=== PATIENT | male | born 1990 | race Caucasian/White ===

== ENCOUNTER 2017-10-02 20:44 | Inpatient (IN) | payer BC, OTHER ==
[~2017-10-02] VITALS: Ht 185.4 cm; Wt 70.3 kg
--- NOTE | 2017-10-02 21:15 | NUR ---
Pre-Admission Patient was seen in intake office. Patient is noted to moderately intoxicated but stable at this time to continue with admission assessment. V/S noted as: 148/83, 96, 18, 98.0, 99%, 0/10. Policies on medication disposal explained and patient is able to verbalize understanding. Will continue with admission process to unit.
[2017-10-02 21:30] VITALS: BP 148/83
[2017-10-02] MEDS ORDERED: LOPERAMIDE HCL 2 MG CAPSULE PO PRN ×2 (21:30)
[2017-10-02] MEDS ORDERED: ACETAMINOPHEN 325 MG TABLET PO PRN (21:30)
[2017-10-02] MEDS ORDERED: MIRALAX 17 GM POWD.PACK PO PRN (21:30)
[2017-10-02] MEDS ORDERED: IBUPROFEN 600 MG TABLET PO PRN (21:30)
[2017-10-02] MEDS ORDERED: DICYCLOMINE HCL 20 MG TABLET PO PRN (21:30)
[2017-10-02] MEDS ORDERED: BUPRENORPHINE HCL 2 MG TAB.SUBL SL PRN (21:30)
[2017-10-02] MEDS ORDERED: ONDANSETRON ODT 4 MG TAB.RAPDIS SL PRN (21:30)
[2017-10-02] MEDS ORDERED: ONDANSETRON 4 MG/2 ML VIAL IM PRN (21:30)
[2017-10-02] MEDS ORDERED: METHOCARBAMOL 750 MG TABLET PO PRN (21:30)
[2017-10-02] MEDS ORDERED: MAG HYDROX/AL HYDROX/SIMETH 30 ML LIQUID UDC PO PRN (21:30)
[2017-10-02] MEDS ORDERED: CLONIDINE HCL 0.1 MG TABLET PO PRN (21:30)
[2017-10-02] MEDS ORDERED: MAGNESIUM HYDROXIDE 30 ML LIQUID UDC PO PRN (21:30)
[2017-10-02 22:00] VITALS: BP 144/86
[2017-10-02 22:03] LABS: BASOPHILS # (AUTO) 0.1 K/uL (0.0-8.0); BASOPHILS % (AUTO) 1.3 % (0.0-2.0); EOSINOPHILS % (AUTO) 0.7 % (0.0-7.0); HEMATOCRIT 42.8 % (40-50); HEMOGLOBIN 14.1 G/DL (14.0-18.0); LYMPHOCYTES # (AUTO) 1.4 K/UL (0.8-4.8); LYMPHOCYTES % (AUTO) 26.2 % (20.5-51.5); MEAN CORPUSCULAR HEMOGLOBIN 27.5 UUG (27.0-31.0); MEAN CORPUSCULAR HGB CONC 33 g/dL (32.0-37.0); MEAN CORPUSCULAR VOLUME 83.6 FL (82.0-92.0); MONOCYTES # (AUTO) 0.9 K/UL (0.1-1.30); MONOCYTES % (AUTO) 17.3 % (0.0-11.0); NEUTROPHILS # (AUTO) 2.8 K/UL (1.8-8.9); NEUTROPHILS % (AUTO) 54.5 % (38.5-71.5); PLATELET COUNT (AUTO) 183 K/UL (150-450); RED BLOOD CELL COUNT(AUTO) 5.12 MIL/UL (4.7-6.1); WHITE BLOOD COUNT (AUTO) 5.2 K/UL (4.0-11.2)
[2017-10-02 22:16] LABS: ALANINE AMINOTRANSFERASE 49 U/L (16-63); ALKALINE PHOSPHATASE 63 U/L (50-136); ASPARTATE AMINOTRANSFERASE 46 U/L (15-37); BILIRUBIN,TOTAL 0.5 mg/dL (0.2-1.0); CARBON DIOXIDE 31 mmol/L (21-32); CHLORIDE 103 mmol/L (98-107); CREATININE 1.1 mg/dL (0.6-1.3); GLUCOSE 92 mg/dL (74-106); POTASSIUM 3.4 mmol/L (3.5-5.1); TOTAL PROTEIN, SERUM 7.5 g/dL (6.4-8.2); UREA NITROGEN, BLOOD 15 mg/dL (7-18)
[2017-10-02 22:18] LABS: ETHANOL < 3 MG/DL (0-0)
--- NOTE | 2017-10-02 22:30 | NUR ---
Admission Patient is a 27 year old male from [facility], admitted to [facility] to receive treatment for his Opioid Dependence. Patient was escorted on to unit by male TABLE MAKER where body check was rendered. Skin check rendered and noted with dry scab to the left lateral neck and left lateral torso. Patient verbalized "its from picking while on meth." Educated and encouraged patient to refrain from picking and to keep area clean and dry. Patient is able to provide Urine drug screen upon arrival to unit. Patient verbalizes allergies to PCN, wishes to be full coded, following a regular diet. Height noted as 6'1 and weight noted as 155lbs. Patient is ambulatory with no assistance needed. Patient is visibly anxious and restless. Breathing is even and non labored with no signs of SOB. No pain or discomfort verbalized. BUE and BLE noted to be WNL with no edema noted. Lung sounds clear with no cough noted. Bowel sounds are active in all 4 quadrants with LBM noted 10/01/17. Patient verbalizes past medical history as anxiety, history of seizure due to benzo withdrawal. Patient currently taking Lamictal 200mg for anxiety. Patient denies any suicidal ideations. He describes his usage as: 1. Heroin, started in 2012 but recently relapsed 2 weeks ago, using 0.5GM IV daily with the last use prior to admission using 0.3GM 2. Methamphetamines, recently started using for the past week, using 1GM via IV with last dose prior to admission using 0.5GM Patient describes his use as "really bad anxiety, restlessness, headaches, light sensitivity, hot and cold sweats, insomnia." Patient currently lives in [place] alone and works in Real Estate. Admission COWS noted to be 4. All information relayed to Dr. Olivarez. Labs to be rendered. PRN medications available for increased signs and symptoms. Will continue plan of acre as ordered.
[2017-10-02 22:45] LABS: LYMPHOCYTES % (MANUAL) 38 % (20-40); NEUTROPHILS % (MANUAL) 52 % (42-75)
[2017-10-02] MEDS ORDERED: LORAZEPAM 1 MG TABLET PO ONE (22:45)
[2017-10-02 22:46] LABS: MONOCYTES % (MANUAL) 10 % (2-10)
[2017-10-02 23:29] LABS: *AMPHETAMINE, URINE POSITIVE (NEGATIVE); *BARBITURATE, URINE NEGATIVE (NEGATIVE); *CANNABINOID, URINE NEGATIVE (NEGATIVE); *COCCAINE, URINE NEGATIVE (NEGATIVE); *OPIATE, URINE POSITIVE (NEGATIVE); *PHENCYCLIDINE SCREEN,URINE NEGATIVE (NEGATIVE)
[2017-10-02] MEDS ORDERED: POTASSIUM CHLORIDE 20 MEQ TAB.PRT.SR PO ONE (23:30)
--- NOTE | 2017-10-02 23:30 | NUR ---
Labs/MD Communication Labs resulted with Potassium of 3.4. Relayed to MD with orders to give Potassium 40meq x1 dose now. Orders noted and carried out. Will administer medications accordingly.
[2017-10-02] MEDS ORDERED: LORAZEPAM 1 MG TABLET ONE (23:50)
[2017-10-02] MEDS ORDERED: POTASSIUM CHLORIDE 20 MEQ TAB.PRT.SR ONE (23:51)
[2017-10-03] VITALS: BP 145/94
[2017-10-03] MEDS ORDERED: LAMO200T2 PO (02:17)
[2017-10-03 04:18] VITALS: BP 152/97
[2017-10-03] MEDS: LORAZEPAM 1 MG TABLET PO PRN ×2 (04:24→21:03)
[2017-10-03] MEDS ORDERED: LORAZEPAM 1 MG TABLET ONE (04:38)
--- NOTE | 2017-10-03 04:40 | NUR ---
PRN Medication Administration Patient is verbalizing increased anxiety and agitation. PRN Ativan 2mg administered as per order. Will continue to monitor.
--- NOTE | 2017-10-03 05:40 | NUR ---
PRN Medication Reassessment Patient is noted in bed sleeping. Breathing even and non labored. No signs of pain or discomfort noted. patient was given PRN Ativan 2mgn for increased anxiety and agitation. Patient noted to continue sleeping with no interruptions noted. will continue to monitor.
--- NOTE | 2017-10-03 06:59 | NUR ---
End of Shift Patient is in bed sleeping. Breathing even and non labored. Patient is a 27 year old male admitted on 10/02/17 for Opiate Dependence under the care of Dr. Olivarez. Patient set to start on on a 4 day Subutex taper. Patient verbalizes allergies to PCN, wishes to be full code, following a regular diet, placed on fall and seizure precautions. Skin noted lateral left neck scab and left lateral torso scab from previous self picking. Patients past medical history noted as anxiety, ADHD, and history of seizures. Patient takes Lamictal 200mg with medication reconciled. Patient received PRN Ativan 2mg for increased anxiety and agitation. Patient also supplemented for lab result of potassium of 3.4. last noted COWS 4. All needs attended to promptly. Will endorse to continue plan of care as ordered.
--- NOTE | 2017-10-03 07:00 | NUR ---
Start of Shift Notes: Received patient in his room. Asleep but easily arousable. Verbally responsive. Oriented x 4. Respirations even and unlabored. No SOB noted. Skin warm and dry to touch. Abdomen soft and non-distended. BS (+) in all 4 quadrants. No complains of N/V/D or constipation noted. Bladder non-distended. Voids independently. Ambulatory ad susana with steady gait. Patient is a 27 year old male admitted for opiate and meth dependence who is currently on a 4-day Subutex taper as ordered. No adverse reactions noted. Prior to admission, patient was using 0.5 to 1 gram of Heroin, and 1 grm of methamphetamine 3x in 1 week. Has past medical hx of anxiety and seizures. Allergic to PCN. FULL CODE. Regular diet. On fall and seizure precautions. Educated patient on his current plan of care for the day and his medication regimen. Encouraged oral fluid intake and encouraged group participation to learn new skills to prevent relapse. Will continue to monitor.
[2017-10-03 08:00] VITALS: BP 126/82
[2017-10-03] MEDS ORDERED: TUBERCULIN,PURIF.PROT.DERIV. 5 TU/0.1 ML TEST ID ONE (09:00)
[2017-10-03] MEDS: BUPRENORPHINE HCL 2 MG TAB.SUBL SL SCH ×3 (09:06→21:02)
[2017-10-03 12:00] VITALS: BP 125/73
--- NOTE | 2017-10-03 12:00 | NUR ---
COWS deferred: Patient noted to be laying in bed with eyes closed. Breathing even and unlabored. Easily arousable. RR 16. COWS deferred at this time. Addendum: 10/03/17 at 1326 by ANNA SYED LVN Amended: Links added.
[2017-10-03] MEDS ORDERED: NICOTINE POLACRILEX 4 MG GUM-PK OF TEN BC PRN (12:45)
[2017-10-03] MEDS: GABAPENTIN 400 MG CAPSULE PO SCH ×2 (15:10→21:03)
[2017-10-03 16:00] VITALS: BP 137/83
--- NOTE | 2017-10-03 19:01 | NUR ---
End of Shift Notes: Patient continues to be on 4-day Subutex taper as ordered. No adverse reactions noted. Patient is tolerating taper well. VS monitored closely. No significant abnormalities noted. Withdrawal symptoms were closely monitored. Initial COWS 9, patient presented with chills, hot flashes, restlessness, pupil dilation, anxiety and myalgia. Last COWS 5. Per patient Subutex has been effective in reducing his withdrawal symptoms. Patient stayed in the room and slept for most of the shift. Encouraged to participate in group and activities. All needs met and attended. Will continue to monitor closely.
--- NOTE | 2017-10-03 19:20 | NUR ---
Start of Shift Patient Received. Patient is in activities room participating in group activities. Patient is a 27 year old male admitted on 10/02/17 for Opiate Dependence under the care of Dr. Olivarez. Patient was started on a 4 day Subutex taper. Patient verbalizes allergies to PCN, Full Code, Regular Diet, placed on fall and seizure precautions. Skin noted lateral left neck scab and left lateral torso scab from previous self picking. Patients past medical history noted as anxiety, ADHD, and history of seizures. Patient was continued on home medication of Lamictal 200mg QHS. Per endorsement, PPD was administered to Right forearm. Last noted CIWA 5. All needs attended to promptly. Will continue plan of care as ordered.
[2017-10-03 20:30] VITALS: BP 133/84
[2017-10-03] MEDS: LAMOTRIGINE 200 MG TABLET PO SCH (21:03)
--- NOTE | 2017-10-03 21:05 | NUR ---
PRN Medication Administration Patient is noted verbalizing increased anxiety, noted to be restless, and verbalizing increased agitation. PRN Ativan 2mg administered as per order. Will continue to monitor.
--- NOTE | 2017-10-03 22:00 | NUR ---
PRN Medication Reassessment Patient noted in bed awake and watching TV. Patient is able to verbalize "the medication really helped me relax and calm down." PRN Ativan noted to be effective. Will continue to monitor.
[2017-10-04 00:25] VITALS: BP 126/88
[2017-10-04 04:28] VITALS: BP 123/86
[2017-10-04 05:06] LABS: HEPATITIS B SURFACE AG Negative (Negative)
--- NOTE | 2017-10-04 07:12 | NUR ---
End of Shift Patient is in bed sleeping. Breathing even and non labored. No signs of pain or discomfort noted. Patient is a 27 year old male admitted on 10/02/17 for Opiate Dependence and is currently receiving a 4 day Subutex taper. Patient verbalizes allergies to PCN, Full Code, Regular Diet, placed on fall and seizure precautions. Skin noted lateral left neck scab and left lateral torso scab from previous self picking. Patients past medical history noted as anxiety, ADHD, and history of seizures. Patient was continued on home medication of Lamictal 200mg QHS. Patient received PRN Ativan 2mg for increased signs and symptoms of withdrawal with medication noted to be effective. Last noted COWS 9. All needs attended to promptly. Will endorse to continue plan of care as ordered.
[2017-10-04 08:00] VITALS: BP 131/67
[2017-10-04] MEDS ORDERED: BUPRENORPHINE HCL 2 MG TAB.SUBL SL SCH ×2 (09:00→15:00)
[2017-10-04] MEDS: GABAPENTIN 400 MG CAPSULE PO SCH ×3 (09:00→21:01)
--- NOTE | 2017-10-04 09:00 | NUR ---
Robaxin 750 mg PO given: Patient complained of 6/10 muscle aches related to opiate withdrawal. Heat packs applied with no help. Medicated patient with Robaxin 750 mg PO as ordered. Will monitor for effectiveness.
--- NOTE | 2017-10-04 10:00 | NUR ---
Re-assessment: Robaxin Per patient, PRN Robaxin was effective in reducing pain. PL 2.
[2017-10-04 12:00] VITALS: BP 125/71
[2017-10-04] MEDS: BUPRENORPHINE HCL 2 MG TAB.SUBL SL SCH ×2 (14:26→21:01)
[2017-10-04] MEDS ORDERED: CLONIDINE HCL 0.1 MG TABLET PO ONE (15:00)
[2017-10-04 16:00] VITALS: BP 120/75
[2017-10-04] MEDS: KETOROLAC TROMETHAMINE 30 MG INJ IM PRN (18:15)
--- NOTE | 2017-10-04 18:15 | NUR ---
Toradol 30 mg IM given: Patient noted with complain of 8/10 generalized muscle aches related to opiate withdrawal. Non-pharmacological interventions were ineffective. Medicated patient with Toradol 30 mg IM as ordered. Will monitor for effectiveness.
--- NOTE | 2017-10-04 18:45 | NUR ---
Re-assessment: Toradol Per patient, PRN Toradol was effective in reducing patient's pain. PL 4.
--- NOTE | 2017-10-04 19:05 | NUR ---
Start of Shift Patient Received. Patient is in his room, awake, alert and verbally responsive. Breathing even and non labored. Patient is a 27 year old male admitted on 10/02/17 for Opiate Dependence and is currently receiving a Modified Subutex taper. Allergies to PCN, Full Code, Regular Diet, placed on fall and seizure precautions. Skin noted lateral left neck scab and left lateral torso scab from previous self picking. Patients past medical history noted as anxiety, ADHD, and history of seizures. Per endorsement, Patient was given PRN Toradol and Robaxin with medication noted to be effective. Last noted COWS 4. All needs attended to promptly. Will continue plan of care as ordered.
--- NOTE | 2017-10-04 19:17 | NUR ---
End of Shift Notes: Patient continues to be on 4-day Subutex taper as ordered. No adverse reactions noted. Tolerating taper well. VS monitored clsoely. No significant abnormalities noted. Withdrawal symptoms were closely monitored. Initial COWS 7, patient presented with anxiety, chills, hot flashes, myalgia and restlessness. Medicated patient with Robaxin 750 mg PO as ordered with help after 1 hour. Toradol 30 mg IM given at 1815 for complain of 8/10 with help after 30 minutes. Last COWS 4. Encoruaged to attend group and activities. All needs met and attended. Will continue to monitor closely.
[2017-10-04 20:39] VITALS: BP_SYST 110; BP_DIAS 68; BP_DIAS 78
[2017-10-04] MEDS: HYDROXYZINE PAMOATE 25 MG CAPSULE PO PRN (21:00)
[2017-10-04] MEDS: diphenhydrAMINE 50 MG CAPSULE PO PRN (21:01)
[2017-10-04] MEDS: LAMOTRIGINE 200 MG TABLET PO SCH (21:01)
[2017-10-04] MEDS: CLONIDINE HCL 0.1 MG TABLET PO SCH (21:01)
--- NOTE | 2017-10-04 21:05 | NUR ---
PRN Medication Administration Patient is verbalizing increased anxiety and inability of falling asleep. PRN Vistaril and Benadryl administered as per order. Will continue to monitor.
--- NOTE | 2017-10-04 22:00 | NUR ---
PRN Medication Reassessment Patient noted in bed sleeping. Breathing even and non labored. Patient was given PRN Vistaril and Benadryl for increased anxiety and inability of falling asleep. PRN medications noted to be effective. Will continue to monitor.
[2017-10-05 00:39] VITALS: BP 119/73
[2017-10-05 04:23] VITALS: BP 113/79
--- NOTE | 2017-10-05 07:04 | NUR ---
End of Shift Patient is in his bed sleeping. Breathing even and non labored. Patient is a 27 year old male admitted on 10/02/17 for Opiate Dependence continues on a modified Subutex taper. Allergies to PCN, Full Code, Regular Diet, placed on fall and seizure precautions. Skin noted lateral left neck scab and left lateral torso scab from previous self picking. Patients past medical history noted as anxiety, ADHD, and history of seizures. Patient received PRN Vistaril and Benadryl with both medications noted to be effective. Last noted COWS 4. All needs attended to promptly. Will endorse to continue plan of care as ordered.
[2017-10-05 08:00] VITALS: BP 125/71
[2017-10-05] MEDS: GABAPENTIN 400 MG CAPSULE PO SCH ×3 (08:13→20:34)
[2017-10-05] MEDS: BACLOFEN 10 MG TABLET PO SCH ×2 (08:13→14:08)
[2017-10-05] MEDS: CLONIDINE HCL 0.1 MG TABLET PO SCH ×2 (08:13→20:34)
[2017-10-05] MEDS ORDERED: BUPRENORPHINE HCL 2 MG TAB.SUBL SL SCH ×2 (09:00)
[2017-10-05 12:00] VITALS: BP 99/66
[2017-10-05] MEDS: BUPRENORPHINE HCL 2 MG TAB.SUBL SL SCH ×2 (14:08→20:33)
[2017-10-05 16:00] VITALS: BP 118/73
[2017-10-05] MEDS: NEOMY/BACITRAC/POLYMI OINT 28.35 GM TUBE TOP SCH (16:34)
--- NOTE | 2017-10-05 16:34 | NUR ---
Vistaril 25 mg PO given: Patient verbalized anxiety due to discharge location. Provided with therapeutic communication. Medicated patient with Vistaril 25 mg PO as ordered. Will monitor for effectiveness.
[2017-10-05] MEDS ORDERED: NEOMY/BACITRAC/POLYMI OINT 28.35 GM TUBE TOP SCH (17:00)
--- NOTE | 2017-10-05 17:34 | NUR ---
Re-assessment: Vistaril Per patient, PRN Vistaril was effective in reducing anxiety.
[2017-10-05] MEDS: KETOROLAC TROMETHAMINE 30 MG INJ IM PRN (17:55)
--- NOTE | 2017-10-05 17:55 | NUR ---
Toradol 30 mg IM given: Patient noted with complain of 8/10 generalized pain related to opiate withdrawal. Non-pharmacological interventions provided but ineffective. Medicated patient with Toradol 30 mg IM as ordered. Will monitor for effectiveness.
--- NOTE | 2017-10-05 18:25 | NUR ---
Re-assessment: Toradol Per patient, PRN Toradol was effective in reducing pain. PL [address]
--- NOTE | 2017-10-05 19:02 | NUR ---
End of Shift Notes: Patient continues to be on 4-day Subutex taper as ordered. No adverse reactions noted. Tolerating taper well. VS monitored clsoely. No significant abnormalities noted. Withdrawal symptoms were closely monitored. Initial COWS 6, patient presented with anxiety, chills, hot flashes, myalgia and restlessness. Last COWS 3. Vistaril 25 mg PO given at 1634 for anxiety with help after 1 hour. Toradol 30 mg IM given at 1755 for 8/10 pain with help after 30 minutes. Per patient, Subutex has been effective in reducing his withdrawal symptoms. Encouraged to attend group and activities. Isolative at times and requires reassurance and redirection. All needs met and attended. Will continue to monitor closely.
--- NOTE | 2017-10-05 19:30 | NUR ---
START OF SHIFT Patient is a 27 year old male admitted on 10/02/17 for Opiate and Meth Dependency and is currently on 4 day Modified Subutex taper. Allergies to PCN, Full Code, Regular Diet, placed on fall and seizure precautions. Patient has PMH of anxiety and seizures due to withdrawals.Last COWS=5 per report.Per patient, Subutex has been effective in reducing his withdrawal symptoms. Pt received resting in bed in his room.Pt is A/A/O X 4. All needs met;all safety measures in place per hospital policy;call light within reach.Will continue to monitor closely.
[2017-10-05 20:00] VITALS: BP 123/81
[2017-10-05] MEDS: BACLOFEN 20 MG TABLET PO SCH (20:33)
[2017-10-05] MEDS: LAMOTRIGINE 200 MG TABLET PO SCH (20:34)
[2017-10-05] MEDS: diphenhydrAMINE 50 MG CAPSULE PO PRN (21:48)
[2017-10-05] MEDS: HYDROXYZINE PAMOATE 25 MG CAPSULE PO PRN (21:48)
--- NOTE | 2017-10-05 21:50 | NUR ---
PRN MEDS PRN VISTARIL AND BENADRYL GIVEN ORDERED FOR C/O ANXIETY AND INSOMNIA RESPECTIVELY.WILL MONITOR FOR EFFECTIVENESS.
--- NOTE | 2017-10-05 22:50 | NUR ---
PRN MEDS EFFECTIVE IN REDUCING ANXIETY.PT OBSERVED RESTING IN BED WITH EYES CLOSED.NO S/S OF DISTRESS NOTED.BREATHING IS EVEN AND UNLABORED.PT REQUESTED EARLIER, NOT TO BE WOKEN UP FOR V/S IF HE IS SLEEPING.WILL CONTINUE TO MONITOR.
--- NOTE | 2017-10-06 | NUR ---
V/S REFUSED/COWS DEFERRED PT REQUESTED NOT TO BE WOKEN UP FOR V/S IF HE IS SLEEPING.PT OBSERVED RESTING IN BED WITH EYES CLOSED,APPEARS TO BE FAST ASLEEP.COWS DEFERRED D/T SLEEP.WILL CONTINUE TO MONITOR.
[2017-10-06 04:00] VITALS: BP 129/81
--- NOTE | 2017-10-06 06:39 | NUR ---
END OF SHIFT Patient is a 27 year old male admitted on 10/02/17 for Opiate and Meth Dependency and is currently on 4 day Modified Subutex taper. Allergies to PCN, Full Code, Regular Diet, placed on fall and seizure precautions. Patient has PMH of anxiety and seizures due to withdrawals.Last COWS=2 at 0400 .PRN Vistaril and Benadryl were given and were effective,pt slept 7 hrs, fluid intake was 1698 mls,voided x 1,stool x 1.Pt is /A/O X 4. All needs met;all safety measures in place per hospital policy;call light within reach.Will continue to monitor closely.
--- NOTE | 2017-10-06 07:38 | NUR ---
BEGINNING OF SHIFT Patient endorsement report received from electronics installer nurse, all pertinent information discussed. Patient is a 27 year old male admitted on: 10/02/2017 with admitting Dx: Opiate Dependence, With substance use of: methamphetamine. Patient is currently with ongoing 4 day Subutex taper as ordered, continues under close observation,received PRN: Vistaril, and Benadryl as ordered. Patient with last cow score of: 2. Patient slept for 7 hours. Patient received awake, alert and oriented x4, educated patient regarding plan of care for the day and medication regimen with good verbal understanding. Safety measures in place. call light kept with in reach, Fall and seizure precautions in place. will continue to monitor closely.
[2017-10-06 08:06] VITALS: BP 126/67
[2017-10-06] MEDS: GABAPENTIN 400 MG CAPSULE PO SCH ×3 (08:30→20:53)
[2017-10-06] MEDS: BACLOFEN 20 MG TABLET PO SCH ×3 (08:30→20:53)
[2017-10-06] MEDS: CLONIDINE HCL 0.1 MG TABLET PO SCH ×2 (08:30→20:54)
[2017-10-06] MEDS: BUPRENORPHINE HCL 2 MG TAB.SUBL SL SCH ×3 (08:31→20:53)
[2017-10-06] MEDS: NEOMY/BACITRAC/POLYMI OINT 28.35 GM TUBE TOP SCH ×2 (08:32→17:05)
[2017-10-06] MEDS ORDERED: BUPRENORPHINE HCL 2 MG TAB.SUBL SL SCH (09:00)
[2017-10-06 13:41] VITALS: BP 112/65
[2017-10-06 17:00] VITALS: BP 116/60
--- NOTE | 2017-10-06 18:50 | NUR ---
END OF SHIFT Patient alert and oriented x4, patient compliant with therapeutic plan of care. Patient with admitting Dx: Opiate dependence, Patient continues on 4 day Subutex taper as ordered, currently on day 2 of taper. 0900 assessment patient presented with: mild bone and joint aches, yawning x1, irritable, and anxiety with cow score of: 4; 1300 assessment patient presented with: mild bone and joint aches, and anxiety with cow score of: 3; 1700 assessment patient presented with: heart rate of 94 and mild anxiety with cow score of:2. Detox medication effective at reducing withdrawal symptoms. Patient encouraged adequate PO fluid intake as tolerated, Encouraged to attend group therapies/sessions to learn new coping skills to prevent relapse, noted attending and participating. denies any SI/HI. Patient administered no PRNs during shift. Patients safety measures are in place. all needs met and rendered. Patient endorsement report given to shift supervisor melting nurse, all pertinent information discussed. Safety measurers in place. will continue to monitor.
--- NOTE | 2017-10-06 19:30 | NUR ---
START OF SHIFT Pt is a 27 y/o male admitted on 10/02/17 for opiate and meth dependence. Pt was dependent on heroin IV 0.5-1 gram daily and meth IV 1 gram x 3 weekly. Pt is full code, allergic to PCN, regular diet and on fall precautions. Pt reports PMH of anxiety and seizure r/t previous benzo withdrawal. Pt is on a 4 day Subutex taper that started 10/03/17, tolerating well. Upon assessment pt is laying in bed and came from group. Pt presents with anxiety, difficulty sleeping, intermittent tremors, muscle spasms, back pain 5/10, intermittent sweats, decreased appetite, anhedonia and dysphoria. Respirations 18, even and unlabored. Denies N/V/D. Denies chest pain or SOB. Safety measures in place. Call light within reach. Will continue to monitor.
[2017-10-06 20:00] VITALS: BP 136/75
[2017-10-06] MEDS: LAMOTRIGINE 200 MG TABLET PO SCH (20:53)
[2017-10-06] MEDS: HYDROXYZINE PAMOATE 25 MG CAPSULE PO PRN (23:03)
--- NOTE | 2017-10-06 23:03 | NUR ---
PRN VISTARIL ADMINISTRATION Pt reports presents with moderate anxiety and restlessness. Safety measures in place. Call light within reach. Will continue to monitor.
--- NOTE | 2017-10-07 | NUR ---
COWS DEFERRED/VITALS REFUSED/VISTARIL REASSESSMENT Pt laying in bed with eyes closed, COWS deferred, to be assessed when pt is awake per orders. Vitals refused. Respirations 16, even and unlabored. Safety measures in place. Call light within reach. Will continue to monitor.
--- NOTE | 2017-10-07 04:00 | NUR ---
COWS DEFERRED/VITALS REFUSED Pt laying in bed with eyes closed, COWS deferred, to be assessed when pt is awake per orders. Vitals refused. Respirations 16, even and unlabored. Safety measures in place. Call light within reach. Will continue to monitor.
--- NOTE | 2017-10-07 07:13 | NUR ---
END OF SHIFT Pt is a 27 y/o male admitted on 10/02/17 for opiate and meth dependence. Pt was dependent on heroin IV 0.5-1 gram daily and meth IV 1 gram x 3 weekly. Pt is full code, allergic to PCN, regular diet and on fall precautions. Pt reports PMH of anxiety and seizure r/t previous benzo withdrawal. Pt is on a 4 day Subutex taper that started 10/03/17, tolerating well. Pt presented with anxiety, difficulty sleeping, intermittent tremors, muscle spasms, back pain 5/10, intermittent sweats, decreased appetite, anhedonia and dysphoria. Scheduled medications and PRN Vistaril 50 mg administered, effective in S/S of withdrawal as verbalized by pt. Last COW 3 at 1999. Pt slept 2 hours. Intake 1600 ml, void x 3, stool x 0. Safety measures in place. Call light within reach. Pts needs have been met. Endorsed to day shift nurse.
[2017-10-07 08:00] VITALS: BP 124/81
--- NOTE | 2017-10-07 08:00 | NUR ---
START OF SHIFT: RECEIVED PT A/O X 4. HE PRESENTS WITH ANXIOUS MOOD AND GUARDED AFFECT. HE REPORTS SOME ANXIETY AND MUSCLE ACHES. HE STATES DETOX MEDS ARE EFFECTIVE. LAST DOSE OF SUBUTEX ADMINISTERED THIS AM. COWS 2 HE STATES HE IS EATING WELL AND REPORTS HE IS ATTENDING GROUPS. ENCOURAGED INCREASED FLUIDS TO ASSIST IN FACILITATING DETOX PROCESS.
[2017-10-07] MEDS: GABAPENTIN 400 MG CAPSULE PO SCH ×3 (08:58→21:07)
[2017-10-07] MEDS: BACLOFEN 20 MG TABLET PO SCH ×3 (08:58→21:07)
[2017-10-07] MEDS ORDERED: BUPRENORPHINE HCL 2 MG TAB.SUBL SL SCH (09:00)
[2017-10-07] MEDS: NEOMY/BACITRAC/POLYMI OINT 28.35 GM TUBE TOP SCH ×2 (09:00→17:00)
[2017-10-07] MEDS: CLONIDINE HCL 0.1 MG TABLET PO SCH ×2 (09:00→21:07)
[2017-10-07 12:00] VITALS: BP 132/65
--- NOTE | 2017-10-07 13:56 | NUR ---
Therapist prompted client about group times. Client stated he would attend groups today.
[2017-10-07 16:00] VITALS: BP 132/70
--- NOTE | 2017-10-07 18:48 | NUR ---
END OF SHIFT: PT COMPLETED SUBUTEX TAPER THIS AM. LAST COWS 2 DISCHARGE SCHEDULED FOR 10/08 IN AM. PT STATES HE IS MOTIVATED TOWARD RECOVERY. HE WAS COMPLIANT WITH MEDS AND NO PRNS GIVEN. HE DID NOT ATTEND GROUPS. ENCOURAGED HIM TO ATTEND PANEL MEETING THIS EVENING. WILL PASS SHIFT REPORT TO NIGHT NURSE.
[2017-10-07] MEDS ORDERED: GABA-536 PO (19:48)
[2017-10-07] MEDS ORDERED: CLON0.1T14 PO (19:48)
[2017-10-07] MEDS ORDERED: METH-406 PO (19:48)
[2017-10-07] MEDS ORDERED: IBUP-1955 PO (19:48)
[2017-10-07] MEDS ORDERED: HYDR-3895 PO (19:48)
[2017-10-07] MEDS ORDERED: DIPH50CA37 PO (19:48)
[2017-10-07] MEDS ORDERED: DICY20TA28 PO (19:48)
[2017-10-07 20:00] VITALS: BP 140/72
--- NOTE | 2017-10-07 20:00 | NUR ---
Start of Shift Pt is a 27 year old male admitted for Opiate dependence, placed on 4 day Subutex taper completed. Pt reported using Heroin 0.5g-1g/daily and meth 1g x3 week. PMH: anxiety and hx of seizure d/t benzo withdrawal. Pt reports allergies to PCN, regular diet and full code. Upon assessment, pt reports feeling anxious, body aches, skin flushed/clammy - respirations even/unlabored, denies SOB/chest pain, denies n/v/d, medications due. Pt is scheduled for discharge tomorrow. Safety measures in place, call light within reach, side rails up x2, bed locked and in low position. Will continue to monitor.
[2017-10-07] MEDS: LAMOTRIGINE 200 MG TABLET PO SCH (21:07)
[2017-10-07] MEDS: HYDROXYZINE PAMOATE 25 MG CAPSULE PO PRN (22:41)
--- NOTE | 2017-10-07 22:41 | NUR ---
PRN Administration Pt reports feeling anxious requests aid. Vistaril 50mg PRN administered. Safety measures in place, will continue to monitor.
--- NOTE | 2017-10-07 23:41 | NUR ---
PRN Reassessment Upon reassessment, pt is in bed, sleeping, respirations even/unlabored. Safety measures in place, will continue to monitor.
--- NOTE | 2017-10-08 | NUR ---
COWS deferred d/t pt sleeping - to assess while pt is awake as ordered. Pt refused to be woken up for 0000 VS Safety measures in place, will continue to monitor.
--- NOTE | 2017-10-08 04:00 | NUR ---
COWS deferred d/t pt sleeping - to assess while pt is awake as ordered. Pt refused to be woken up for [address], will continue to monitor
--- NOTE | 2017-10-08 07:00 | NUR ---
End of Shift Pt is a 27 year old male admitted for Opiate dependence, placed on 4 day Subutex taper completed. Pt reported using Heroin 0.5g-1g/daily and meth 1g x3 week. PMH: anxiety and hx of seizure d/t benzo withdrawal. Pt reports allergies to PCN, regular diet and full code. During shift, pt reported feeling anxious, body aches, skin flushed/clammy scheduled medications administered, COWS 1. Vistaril 50mg PRN administered for anxiety, effective. Pt is scheduled for discharge today. Pt slept for 6 hours, intake of 1759 ml PO, voids x3 and stool x0. Safety measures in place, call light within reach, side rails up x2, bed locked and in low position. Endorsed to day shift nurse.
--- NOTE | 2017-10-08 07:36 | NUR ---
START OF SHIFT NOTE: Received report from overnight associate nurse. Pt is a 27 year old male admitted for Opiate dependence, placed on 4 day Subutex taper completed. To be discharged today. Pt is alert and oriented X4. Color good, skin warm and dry. Respirations even and unlabored. Safety precautions observed. Call light within reach.
[2017-10-08 08:04] VITALS: BP 120/72
[2017-10-08 08:27] VITALS: BP 122/76
[2017-10-08] MEDS: BACLOFEN 20 MG TABLET PO SCH (08:27)
[2017-10-08] MEDS: GABAPENTIN 400 MG CAPSULE PO SCH (08:27)
[2017-10-08] MEDS: CLONIDINE HCL 0.1 MG TABLET PO SCH (08:27)
[2017-10-08] MEDS: NEOMY/BACITRAC/POLYMI OINT 28.35 GM TUBE TOP SCH (08:29)
--- NOTE | 2017-10-08 08:30 | NUR ---
VSS Discharge papers and medication bag signed
--- NOTE | 2017-10-08 09:17 | NUR ---
Pt discharged in stable condition with all valuables, belongings and home meds. Denies SI/HI. To Home via private car
== END 2017-10-08 09:17 | disposition home or self-care (01) | DRG 895 ==
LOC: SRC 20:44
PROVIDERS: ADMIT Internal Medicine; ATTEND Internal Medicine
PROC: HZ2ZZZZ Detoxification Services for Substance Abuse Treatment (ICD-10-PCS; principal; 2017-10-02)
PROC: HZ31ZZZ Individual Counseling for Substance Abuse Treatment, Behavioral (ICD-10-PCS; 2017-10-03)
DX: F11.23 Opioid dependence with withdrawal (principal); S36.118A Other injury of liver, initial encounter; I15.9 Secondary hypertension, unspecified; F39 Unspecified mood [affective] disorder; E87.6 Hypokalemia; F13.21 Sedative, hypnotic or anxiolytic dependence, in remission; F17.290 Nicotine dependence, other tobacco product, uncomplicated; F15.23 Other stimulant dependence with withdrawal; Z83.3 Family history of diabetes mellitus; Z82.49 Family history of ischemic heart disease and other diseases of the circulatory system; Z81.3 Family history of other psychoactive substance abuse and dependence; Z81.8 Family history of other mental and behavioral disorders; F41.1 Generalized anxiety disorder; X58.XXXA Exposure to other specified factors, initial encounter; S10.9 Superficial injury of unspecified part of neck; Y33.XXXD Other specified events, undetermined intent, subsequent encounter
CPT/HCPCS: 36415; 80307; 80324; 80361; 83735; 85025; 86580; 86592; 86705; 86803; 87340; 87806; A4663; G0480; J1885; Q0163

== ENCOUNTER 2017-11-09 13:39 | Inpatient (IN) | payer BC, OTHER ==
[~2017-11-09] VITALS: Ht 185.4 cm; Wt 65.8 kg
[~2017-11-09 13:39] MED LIST: CLON0.1T14 PO; DICY20TA28 PO; DIPH50CA37 PO; GABA-536 PO; HYDR-3895 PO; IBUP-1955 PO; LAMO200T2 PO; METH-406 PO
[2017-11-09] MEDS ORDERED: MAGNESIUM HYDROXIDE 30 ML LIQUID UDC PO PRN (16:00)
[2017-11-09] MEDS ORDERED: DOCUSATE SODIUM 250 MG CAPSULE PO PRN (16:00)
[2017-11-09] MEDS ORDERED: MIRALAX 17 GM POWD.PACK PO PRN (16:00)
[2017-11-09] MEDS ORDERED: ACETAMINOPHEN 325 MG TABLET PO PRN (16:00)
[2017-11-09] MEDS ORDERED: LOPERAMIDE HCL 2 MG CAPSULE PO PRN ×2 (16:00)
[2017-11-09] MEDS ORDERED: ONDANSETRON ODT 4 MG TAB.RAPDIS SL PRN (16:00)
[2017-11-09] MEDS ORDERED: IBUPROFEN 600 MG TABLET PO PRN (16:00)
[2017-11-09] MEDS ORDERED: MAG HYDROX/AL HYDROX/SIMETH 30 ML LIQUID UDC PO PRN (16:00)
[2017-11-09] MEDS ORDERED: BUPRENORPHINE HCL 2 MG TAB.SUBL SL PRN (16:00)
[2017-11-09] MEDS ORDERED: ONDANSETRON 4 MG/2 ML VIAL IM PRN (16:00)
[2017-11-09] MEDS ORDERED: LORAZEPAM 2 MG/1 ML VIAL IM PRN (16:00)
[2017-11-09] MEDS: METHOCARBAMOL 750 MG TABLET PO PRN (16:20)
[2017-11-09] MEDS: BUPRENORPHINE HCL 2 MG TAB.SUBL SL SCH ×2 (16:20→21:21)
[2017-11-09] MEDS: CLONIDINE HCL 0.1 MG TABLET PO PRN (16:21)
[2017-11-09] MEDS: DICYCLOMINE HCL 20 MG TABLET PO PRN (16:21)
[2017-11-09 16:31] LABS: BASOPHILS % (AUTO) 0.3 % (0.0-2.0); EOSINOPHILS # (AUTO) 0.1 K/uL (0.0-0.7); EOSINOPHILS % (AUTO) 0.8 % (0.0-7.0); HEMATOCRIT 39.7 % (36.7-47.1); HEMOGLOBIN 13.9 g/dL (12.5-16.3); LYMPHOCYTES % (AUTO) 14.7 % (20.5-51.5); MEAN CORPUSCULAR HGB CONC 35 g/dL (32.5-36.3); MEAN CORPUSCULAR VOLUME 85.6 fL (73.0-96.2); MONOCYTES # (AUTO) 0.5 K/uL (2.0-10.0); MONOCYTES % (AUTO) 7.9 % (0.0-11.0); NEUTROPHILS # (AUTO) 5.2 K/uL (1.8-8.9); NEUTROPHILS % (AUTO) 76.3 % (38.5-71.5); PLATELET COUNT (AUTO) 233 K/uL (152-348); RED BLOOD CELL COUNT(AUTO) 4.64 MIL/uL (4.06-5.63); WHITE BLOOD COUNT (AUTO) 6.8 K/uL (3.6-10.2)
[2017-11-09] MEDS: LORAZEPAM 1 MG TABLET PO PRN ×2 (16:34→22:15)
[2017-11-09] MEDS ORDERED: LAMO200T PO (16:35)
[2017-11-09] MEDS ORDERED: BACL20TA PO (16:35)
[2017-11-09] MEDS ORDERED: GABA800T2 PO (16:35)
[2017-11-09 16:36] LABS: ALANINE AMINOTRANSFERASE 99 U/L (16-63); ALKALINE PHOSPHATASE 98 U/L (50-136); ASPARTATE AMINOTRANSFERASE 79 U/L (15-37); BILIRUBIN,TOTAL 0.8 mg/dL (0.2-1.0); CARBON DIOXIDE 28 mmol/L (21-32); CHLORIDE 101 mmol/L (98-107); CREATININE 1.1 mg/dL (0.6-1.3); GLUCOSE 93 mg/dL (74-106); MAGNESIUM 2.1 mg/dL (1.8-2.4); POTASSIUM 3.4 mmol/L (3.5-5.1); TOTAL PROTEIN, SERUM 7.4 g/dL (6.4-8.2); UREA NITROGEN, BLOOD 14 mg/dL (7-18)
[2017-11-09 16:49] LABS: ETHANOL < 3 MG/DL (0-0)
[2017-11-09] MEDS: NEOMY/BACITRAC/POLYMI OINT 28.35 GM TUBE TOP SCH (17:41)
[2017-11-09] MEDS ORDERED: POTASSIUM CHLORIDE 10 MEQ CAPSULE.SA PO ONE (18:00)
[2017-11-09 20:00] VITALS: BP 107/60
[2017-11-09 20:13] LABS: *AMPHETAMINE, URINE POSITIVE (NEGATIVE); *BARBITURATE, URINE NEGATIVE (NEGATIVE); *CANNABINOID, URINE NEGATIVE (NEGATIVE); *COCCAINE, URINE NEGATIVE (NEGATIVE); *OPIATE, URINE POSITIVE (NEGATIVE); *PHENCYCLIDINE SCREEN,URINE NEGATIVE (NEGATIVE)
[2017-11-09] MEDS: DOXYCYCLINE HYCLATE 100 MG TABLET PO SCH (21:21)
[2017-11-09] MEDS: GABAPENTIN 400 MG CAPSULE PO SCH (21:21)
[2017-11-10] VITALS: BP 124/82
[2017-11-10] MEDS: HYDROXYZINE PAMOATE 25 MG CAPSULE PO PRN (01:29)
[2017-11-10] MEDS: diphenhydrAMINE 50 MG CAPSULE PO PRN (01:29)
[2017-11-10] MEDS: CLONIDINE HCL 0.1 MG TABLET PO PRN (01:29)
[2017-11-10 04:00] VITALS: BP 114/72
[2017-11-10] MEDS: LORAZEPAM 1 MG TABLET PO PRN ×3 (05:06→15:27)
[2017-11-10] MEDS: METHOCARBAMOL 750 MG TABLET PO PRN ×2 (05:06→20:34)
[2017-11-10 08:00] VITALS: BP 106/68
[2017-11-10] MEDS ORDERED: TUBERCULIN,PURIF.PROT.DERIV. 5 TU/0.1 ML TEST ID ONE (09:00)
[2017-11-10] MEDS: BUPRENORPHINE HCL 2 MG TAB.SUBL SL SCH ×3 (09:51→20:35)
[2017-11-10] MEDS: GABAPENTIN 400 MG CAPSULE PO SCH ×3 (09:51→20:34)
[2017-11-10] MEDS: DOXYCYCLINE HYCLATE 100 MG TABLET PO SCH ×2 (09:52→20:34)
[2017-11-10] MEDS: NEOMY/BACITRAC/POLYMI OINT 28.35 GM TUBE TOP SCH ×2 (09:52→17:00)
[2017-11-10 12:00] VITALS: BP 127/73
[2017-11-10] MEDS: BACLOFEN 10 MG TABLET PO SCH ×2 (15:27→20:34)
[2017-11-10 16:00] VITALS: BP 143/87
[2017-11-10 20:00] VITALS: BP 142/81
[2017-11-10] MEDS: CLONIDINE HCL 0.1 MG TABLET PO SCH (20:33)
[2017-11-10] MEDS: LAMOTRIGINE 200 MG TABLET PO SCH (20:34)
[2017-11-10] MEDS ORDERED: LAMOTRIGINE 200 MG TABLET ONE (20:49)
[2017-11-11] VITALS: BP 135/70
[2017-11-11] MEDS: LORAZEPAM 1 MG TABLET PO PRN ×2 (00:32→09:03)
[2017-11-11 04:00] VITALS: BP 130/76
[2017-11-11] MEDS: CLONIDINE HCL 0.1 MG TABLET PO PRN ×2 (04:50→15:51)
[2017-11-11] MEDS: diphenhydrAMINE 50 MG CAPSULE PO PRN ×2 (04:50→21:46)
[2017-11-11] MEDS: HYDROXYZINE PAMOATE 25 MG CAPSULE PO PRN ×2 (04:51→15:51)
[2017-11-11 08:00] VITALS: BP 114/74
[2017-11-11] MEDS ORDERED: BUPRENORPHINE HCL 2 MG TAB.SUBL SL SCH (09:00)
[2017-11-11] MEDS ORDERED: LAMOTRIGINE 200 MG TABLET PO SCH (09:00)
[2017-11-11] MEDS: BACLOFEN 10 MG TABLET PO SCH (09:01)
[2017-11-11] MEDS: GABAPENTIN 400 MG CAPSULE PO SCH ×3 (09:01→20:52)
[2017-11-11] MEDS: CLONIDINE HCL 0.1 MG TABLET PO SCH ×3 (09:02→20:53)
[2017-11-11] MEDS: NEOMY/BACITRAC/POLYMI OINT 28.35 GM TUBE TOP SCH ×2 (09:06→16:42)
[2017-11-11] MEDS: DOXYCYCLINE HYCLATE 100 MG TABLET PO SCH ×2 (09:08→20:52)
[2017-11-11 12:00] VITALS: BP 116/77
[2017-11-11] MEDS ORDERED: KETOROLAC TROMETHAMINE 30 MG INJ IM PRN (12:45)
[2017-11-11] MEDS: BACLOFEN 20 MG TABLET PO SCH ×2 (14:15→20:53)
[2017-11-11] MEDS: BUPRENORPHINE HCL 2 MG TAB.SUBL SL SCH ×2 (14:17→20:55)
[2017-11-11] MEDS: DICYCLOMINE HCL 20 MG TABLET PO PRN (15:51)
[2017-11-11 16:00] VITALS: BP 111/62
[2017-11-11 20:00] VITALS: BP 116/69
[2017-11-11] MEDS: LAMOTRIGINE 200 MG TABLET PO SCH (20:53)
[2017-11-11] MEDS: METHOCARBAMOL 750 MG TABLET PO PRN (21:46)
[2017-11-12] VITALS: BP 121/77
[2017-11-12 04:00] VITALS: BP 114/77
[2017-11-12 04:10] LABS: HEPATITIS B SURFACE AG Negative (Negative)
[2017-11-12] MEDS: HYDROXYZINE PAMOATE 25 MG CAPSULE PO PRN ×2 (04:32→13:26)
[2017-11-12 08:00] VITALS: BP 125/88
[2017-11-12] MEDS: GABAPENTIN 400 MG CAPSULE PO SCH ×3 (08:25→20:43)
[2017-11-12] MEDS: BACLOFEN 20 MG TABLET PO SCH ×3 (08:25→20:43)
[2017-11-12] MEDS: BUPRENORPHINE HCL 2 MG TAB.SUBL SL SCH ×4 (08:26→20:43)
[2017-11-12] MEDS: CLONIDINE HCL 0.1 MG TABLET PO SCH ×3 (08:26→20:43)
[2017-11-12] MEDS: NEOMY/BACITRAC/POLYMI OINT 28.35 GM TUBE TOP SCH (08:26)
[2017-11-12] MEDS: DOXYCYCLINE HYCLATE 100 MG TABLET PO SCH ×2 (08:41→20:43)
[2017-11-12 12:00] VITALS: BP 119/88
[2017-11-12] MEDS: DICYCLOMINE HCL 20 MG TABLET PO PRN (13:27)
[2017-11-12] MEDS: CLONIDINE HCL 0.1 MG TABLET PO PRN (13:27)
[2017-11-12] MEDS: METHOCARBAMOL 750 MG TABLET PO PRN (13:28)
[2017-11-12 16:00] VITALS: BP 97/50
[2017-11-12 20:00] VITALS: BP 111/64
[2017-11-12] MEDS: LAMOTRIGINE 200 MG TABLET PO SCH (20:43)
[2017-11-13] VITALS: BP 115/54
[2017-11-13] MEDS: METHOCARBAMOL 750 MG TABLET PO PRN (05:47)
[2017-11-13 05:48] VITALS: BP 125/61
[2017-11-13] MEDS: CLONIDINE HCL 0.1 MG TABLET PO PRN (05:48)
[2017-11-13 08:00] VITALS: BP 120/61
[2017-11-13] MEDS: GABAPENTIN 400 MG CAPSULE PO SCH ×3 (08:11→21:05)
[2017-11-13] MEDS: BACLOFEN 20 MG TABLET PO SCH ×3 (08:12→21:05)
[2017-11-13] MEDS: DOXYCYCLINE HYCLATE 100 MG TABLET PO SCH ×2 (08:12→21:05)
[2017-11-13] MEDS: CLONIDINE HCL 0.1 MG TABLET PO SCH ×3 (08:12→21:08)
[2017-11-13] MEDS ORDERED: BUPRENORPHINE HCL 2 MG TAB.SUBL SL SCH (09:00)
[2017-11-13 12:00] VITALS: BP 109/64
[2017-11-13] MEDS: HYDROXYZINE PAMOATE 25 MG CAPSULE PO PRN ×2 (13:20→22:43)
[2017-11-13 16:00] VITALS: BP 105/61
[2017-11-13 20:00] VITALS: BP 116/62
[2017-11-13] MEDS ORDERED: HYDR-3895 PO (20:57)
[2017-11-13] MEDS ORDERED: GABA-536 PO (20:57)
[2017-11-13] MEDS ORDERED: BACL20TA PO (20:57)
[2017-11-13] MEDS ORDERED: IBUP-1955 PO (20:57)
[2017-11-13] MEDS ORDERED: LAMO200T2 PO (20:57)
[2017-11-13] MEDS ORDERED: DIPH50CA37 PO (20:57)
[2017-11-13] MEDS ORDERED: DICY20TA28 PO (20:57)
[2017-11-13] MEDS ORDERED: CLON0.1T14 PO (20:57)
[2017-11-13] MEDS: LAMOTRIGINE 200 MG TABLET PO SCH (21:08)
[2017-11-13] MEDS: diphenhydrAMINE 50 MG CAPSULE PO PRN (22:43)
[2017-11-14] VITALS: BP 103/51
[2017-11-14 08:15] VITALS: BP 105/60
[2017-11-14 08:32] VITALS: BP 105/60
[2017-11-14] MEDS: GABAPENTIN 400 MG CAPSULE PO SCH (08:32)
[2017-11-14] MEDS: DOXYCYCLINE HYCLATE 100 MG TABLET PO SCH (08:32)
[2017-11-14] MEDS: BACLOFEN 20 MG TABLET PO SCH (08:32)
[2017-11-14] MEDS: CLONIDINE HCL 0.1 MG TABLET PO SCH (08:32)
== END 2017-11-14 09:40 | disposition home or self-care (01) | DRG 895 ==
LOC: SRC 15:06
PROVIDERS: ADMIT Internal Medicine; ATTEND Internal Medicine
PROC: HZ2ZZZZ Detoxification Services for Substance Abuse Treatment (ICD-10-PCS; principal; 2017-11-09)
PROC: HZ31ZZZ Individual Counseling for Substance Abuse Treatment, Behavioral (ICD-10-PCS; 2017-11-10)
DX: F11.23 Opioid dependence with withdrawal (principal); I15.9 Secondary hypertension, unspecified; F14.20 Cocaine dependence, uncomplicated; F15.20 Other stimulant dependence, uncomplicated; L03.818 Cellulitis of other sites; L03.211 Cellulitis of face; L02.414 Cutaneous abscess of left upper limb; E87.6 Hypokalemia; F17.290 Nicotine dependence, other tobacco product, uncomplicated; Z81.3 Family history of other psychoactive substance abuse and dependence; Z82.49 Family history of ischemic heart disease and other diseases of the circulatory system; Z83.3 Family history of diabetes mellitus; Z81.8 Family history of other mental and behavioral disorders; S00.80XS Unspecified superficial injury of other part of head, sequela; X83.8XXS Intentional self-harm by other specified means, sequela; R74.0 Nonspecific elevation of levels of transaminase and lactic acid dehydrogenase [LDH]; F41.1 Generalized anxiety disorder; F31.9 Bipolar disorder, unspecified
CPT/HCPCS: 36415; 80307; 80324; 80361; 83735; 85025; 86580; 86592; 86705; 86803; 87340; 87806; A4663; G0480; Q0163